=== PATIENT | female | born 1950 | race Caucasian/White ===

== ENCOUNTER 2016-10-05 12:25 | Emergency (ER) | payer BC, MEDICARE ==
[2016-10-05 13:54] VITALS: BP 156/77
--- NOTE | 2016-10-05 14:13 | UC ---
Respiratory Complaint HPI - HPI Summary HPI Summary: Dry cough, nasal congestion, ST (especially at night) starting about 4 days ago. Last two nights has had trouble sleeping due to cough. Denies fever or wheezing. - History of Current Complaint Chief Complaint: UCGeneralIllness Stated Complaint: SORE THROAT,COUGH Time Seen by Provider: 10/05/16 13:36 Hx Obtained From: Patient Hx Last Menstrual Period: n/a ?: No Onset/Duration: Gradual Onset, Lasting Days Timing: Constant Severity Initially: Mild Severity Currently: Moderate Character: Cough: Nonproductive Aggravating Factors: Deep Breaths, Recumbent Position Alleviating Factors: Upright Position Associated Signs And Symptoms: Positive: Nasal Congestion. Negative: Dyspnea, Fever, Chills, Pleuritic Chest Pain, Wheezing - Allergies/Home Medications Allergies/Adverse Reactions: Allergies Allergy/AdvReac Type Severity Reaction Status Date / Time Aspirin AdvReac Bleeding Verified 10/05/16 13:54 opiods AdvReac Vomiting Uncoded 10/05/16 13:54 Home Medications: Home Medications Acetaminophen [Tylenol 8 Hour Arthritis] 650 mg PO BID PRN 10/05/16 [History Confirmed 10/05/16] glipiZIDE TAB* [Glucotrol TAB*] 5 mg PO BID 10/05/16 [History Confirmed 10/05/16 ] metFORMIN* [Glucophage*] 500 mg PO BID 10/05/16 [History Confirmed 10/05/16] PMH/Surg Hx/FS Hx/Imm Hx Endocrine History Of: Reports: Diabetes Cardiovascular History Of: Reports: Hypertension - Surgical History Surgical History: Yes Surgery Procedure, Year, and Place: cholecystectomy, hiatal hernia repair 1988. [facility] - Family History Known Family History: Positive: Hypertension, Diabetes - Social History Occupation: Retired Lives: With Family Alcohol Use: None Substance Use Type: None Smoking Status (MU): Never Smoked Tobacco Review of Systems Constitutional: Negative Skin: Negative Eyes: Negative ENT: Sore Throat, Nasal Discharge Respiratory: Cough Cardiovascular: Negative Gastrointestinal: Negative Genitourinary: Negative Motor: Negative Neurovascular: Negative Musculoskeletal: Negative Neurological: Negative Psychological: Negative All Other Systems Reviewed And Are Negative: Yes Physical Exam Triage Information Reviewed: Yes Appearance: Well-Appearing, No Pain Distress, Obese Vital Signs: Initial Vital Signs Temp 98.2 F 10/05/16 13:51 Pulse 69 10/05/16 13:51 Resp 16 10/05/16 13:51 BP 156/77 10/05/16 13:51 Pulse Ox 100 10/05/16 13:51 Vital Signs Reviewed: Yes Eye Exam: Normal Eyes: Positive: Conjunctiva Clear ENT: Positive: Hearing grossly normal, Pharynx normal, Nasal congestion, TMs normal. Negative: Tonsillar swelling Dental Exam: Other - dentures Neck exam: Normal Neck: Positive: Supple, Nontender, No Lymphadenopathy Respiratory Exam: Normal Respiratory: Positive: Chest non-tender, Lungs clear, Normal breath sounds, No respiratory distress, No accessory muscle use Cardiovascular Exam: Normal Cardiovascular: Positive: RRR, No Murmur Musculoskeletal Exam: Normal Musculoskeletal: Positive: Strength Intact Neurological Exam: Normal Psychological Exam: Normal Skin Exam: Normal UC Diagnostic Evaluation - Laboratory O2 Sat by Pulse Oximetry: 100 Respiratory Course/Dx - Differential Dx/Diagnosis Provider Diagnoses: Acute bronchitis, likely viral Discharge - Discharge Plan Condition: Stable Disposition: HOME Prescriptions: Benzonatate CAP* [Tessalon CAP*] 100 mg PO TID PRN #30 cap PRN Reason: Cough Patient Education Materials: Acute Bronchitis (ED) Referrals: Ebenezer Price NP [Primary Care Provider] - Additional Instructions: You can also use Delsym (or generic alternative) that has high-dose dextromethorphan for your bedtime cough. Call or return if you develop increasing fever, shortness of breath, chest pain , bloody sputum, or otherwise worsen. If you have not improved at all after several days, contact your primary care physician or return here.
== END 2016-10-05 14:32 | disposition home or self-care (01) ==
LOC: UCCORT 12:25
DX: J20.9 Acute bronchitis, unspecified (principal); E11.9 Type 2 diabetes mellitus without complications; E66.9 Obesity, unspecified; Z88.5 Allergy status to narcotic agent; Z88.6 Allergy status to analgesic agent
CPT/HCPCS: 99202; G0463